=== PATIENT | male | born 1960 | race Caucasian/White ===

== ENCOUNTER 2016-07-24 18:27 | Emergency (ER) | payer BC ==
[~2016-07-24] VITALS: Ht 180.3 cm; Wt 82.9 kg
[~2016-07-24 18:27] MED LIST: ALBUTEROL17 GM IH; ASMANEX0.135 GM IH; SINGULAIR10 MG PO
[2016-07-24] MEDS ORDERED: HYDROCODONE-CH473 ML PO (19:14)
[2016-07-24] MEDS ORDERED: ESOMEPRAZOLE MA40 MG PO (19:15)
[2016-07-24] MEDS ORDERED: MONTELUKAST SOD10 MG PO (19:15)
[2016-07-24] MEDS ORDERED: PREDNISONE20 MG PO (19:15)
[2016-07-24] MEDS ORDERED: BACTRIM,SEPT1 TABLET PO (19:16)
[2016-07-24 21:23] VITALS: BP 00/0
== END 2016-07-24 21:29 | disposition home or self-care (01) ==
LOC: EME 18:27
PROC: 0HQ0XZZ Repair Scalp Skin, External Approach (ICD-10-PCS; principal; 2016-07-24)
DX: S09.90XA Unspecified injury of head, initial encounter (principal); S09.91XA Unspecified injury of ear, initial encounter; W45.8XXA Other foreign body or object entering through skin, initial encounter; Y92.79 Other farm location as the place of occurrence of the external cause; J45.909 Unspecified asthma, uncomplicated; J44.9 Chronic obstructive pulmonary disease, unspecified; Z87.891 Personal history of nicotine dependence
CPT/HCPCS: 70450; 72125; 99281; 99284

== ENCOUNTER 2017-09-25 11:07 | Emergency (ER) | payer BC ==
[~2017-09-25] VITALS: Ht 180.3 cm; Wt 80.3 kg
[~2017-09-25 11:07] MED LIST changes: +BACTRIM,SEPT1 TABLET PO; +ESOMEPRAZOLE MA40 MG PO; +HYDROCODONE-CH473 ML PO; +MONTELUKAST SOD10 MG PO; +PREDNISONE20 MG PO
[2017-09-25 12:00] LABS: HEMOGLOBIN 16.1 G/DL (12.5-16.6); MCH 30.7 PG (29.0-34.0); MCV 87.6 FL (86-99); PLATELET COUNT 220 K/uL (156-360); RBC DIS.WIDTH-CV 12.5 % (11.8-14.6); RBC DIS.WIDTH-SD 40.4 % (39-53); RED BLOOD COUNT 5.25 M/uL (4.00-5.50)
[2017-09-25 12:06] LABS: CHLORIDE 105 mEq/L (99-109); POTASSIUM 4.2 mEq/L (3.7-5.4); SODIUM 142 mEq/L (136-147)
[2017-09-25 12:07] LABS: GLUCOSE 119 mg/dL (70-99)
[2017-09-25 12:11] LABS: CREATININE 0.9 mg/dL (0.6-1.3); GFR ESTIMATE (CALCULATED) > 59 mL/min/ (58.99-99999)
[2017-09-25 12:12] LABS: UREA NITROGEN (BUN) 12 mg/dL (9-23)
[2017-09-25] MEDS ORDERED: MOTRIN800 MG PO (13:22)
[2017-09-25 13:34] VITALS: BP 149/82
== END 2017-09-25 13:39 | disposition home or self-care (01) ==
LOC: EME 11:07
PROVIDERS: Nurse Practitioner Family
DX: M25.561 Pain in right knee (principal); J84.10 Pulmonary fibrosis, unspecified; Z79.52 Long term (current) use of systemic steroids; R60.0 Localized edema; J44.9 Chronic obstructive pulmonary disease, unspecified; G47.30 Sleep apnea, unspecified; Z88.5 Allergy status to narcotic agent; Z88.6 Allergy status to analgesic agent
CPT/HCPCS: 80048; 85027; 85610; 85730; 93971; 99281; 99284